=== PATIENT | female | born 1990 ===

== ENCOUNTER 2018-08-10 06:43 | Emergency (ER) | payer OTHER ==
[~2018-08-10] VITALS: Ht 167.6 cm; Wt 68.0 kg
[~2018-08-10 06:43] MED LIST: ZITHROMAX TRI-500 MG PO; ZYRTEC10 MG PO; [UNRECOGNIZED DRUG - CODE] PO
== END 2018-08-10 13:11 | disposition home or self-care (01) ==
LOC: ER 06:43
DX: J06.9 Acute upper respiratory infection, unspecified (principal)

== ENCOUNTER 2024-01-31 13:07 | Outpatient (CLI) | payer OTHER | END 2024-01-31 13:20 | disposition home or self-care (01) | LOC: SONOGRAMA 13:07 | PROVIDERS: ATTEND Obstetrics & Gynecology Reproductive Endocrinology | DX: D25.9 Leiomyoma of uterus, unspecified (principal); D28.9 Benign neoplasm of female genital organ, unspecified ==

== ENCOUNTER 2024-04-24 10:48 | Outpatient (CLI) | payer OTHER | END 2024-04-24 10:54 | disposition home or self-care (01) | LOC: TOM 10:48 | PROVIDERS: ATTEND Obstetrics & Gynecology Reproductive Endocrinology | DX: N70.11 Chronic salpingitis (principal) ==